=== PATIENT | male | born 1960 ===

== ENCOUNTER 2018-09-02 06:29 | Day surgery (SDC) | payer BC ==
[2018-08-25 08:50] VITALS: BMI 28.6
[2018-09-02] MEDS ORDERED: Propofol 10 mg/ml Inj (20 ML) ONE ×2 (08:00→08:32)
[2018-09-02] MEDS ORDERED: Simethicone 40 mg/0.6 ml Liquid (30 ml) ONE (08:36)
[2018-09-02] MEDS ORDERED: Sodium Chloride 0.9% 1,000 ML IV SCH (09:00)
[2018-09-02 11:01] VITALS: BP 122/76; PULSE 51; RESP 16; TEMP 97.8; O2SAT 99
== END 2018-09-02 10:12 | disposition home or self-care (01) ==
LOC: ENDO 06:29
PROVIDERS: ATTEND Internal Medicine Gastroenterology
DX: Z12.11 Encounter for screening for malignant neoplasm of colon (principal); D12.0 Benign neoplasm of cecum; K63.5 Polyp of colon; K64.1 Second degree hemorrhoids
CPT/HCPCS: 45380; 45385; 88305; J2001; J2704; J3010; J7030